=== PATIENT | female | born 1970 | race Caucasian/White ===

== ENCOUNTER 2019-06-10 21:18 | Emergency (ER) | payer MEDICAID ==
--- NOTE | 2019-06-10 22:40 | ED Physician Chart ---
ED Chief Complaint/HPI - Patient Information Date Seen:: 06/10/19 Time Seen:: 22:00 Chief Complaint:: left eye redness and itching History of Present Illness:: Patient woke this morning with redness and itching of left eye with eyelid stuck together. Now the right eye is starting to itch. No recent upper respiratory tract infection or cough. Allergies:: Allergies Allergy/AdvReac Type Severity Reaction Status Date / Time No Known Allergies Allergy Verified 06/10/19 21:48 Vitals:: Vital Signs - 8 hr 06/10/19 21:25 Temp 98.2 F HR 94 RR 18 BP 148/77 O2 Sat % 99 Historian:: Patient Review:: Nurse's Note Reviewed ED Review of Systems - Review of Systems General/Constitutional: No fever, No chills Skin: No skin lesions Head: No headache Eyes: Other (see history and physical) ENT: No earache Neck: No neck pain Cardio Vascular: No chest pain Pulmonary: No SOB GI: No nausea, No vomiting, No diarrhea G/U: No dysuria Musculoskeletal: No bone or joint pain Endocrine: No polyuria Psychiatric: No prior psych history, No depression, No anxiety Hematopoietic: No bruising Allergic/Immuno: No urticaria Neurological: No syncope ED Past Medical History - Past Medical History Past Medical History: No significant medical hx Family History: None Social History: Smoker, No Alcohol, Other Employment:: smokes 1/2 pack cigarets per day ED Physical Exam - Physical Examination General/Constitutional: Awake, Well-developed, well-nourished, Alert, No distress, GCS 15, Non-toxic appearing, Ambulatory Head: Atraumatic Eyes: PERRL, EOMI Other Eyes comments:: Left eye: Eyes lids 1 of 4 swollen; 2 out of 4 conjunctival redness; right eye plus or minus minimal conjunctival redness Skin: Nl inspection, No rash, No skin lesions, No ecchymosis, Well hydrated, No lymphadenopathy ENMT: External ears, nose nl, Nasal exam nl, Lips, teeth, gums nl Neck: Nontender, Full ROM w/o pain, No JVD, No nuchal rigidity, No bruit, No mass, No stridor Respiratory: Nl effort/Exclusion, Clear to Auscultation, No Wheeze/Rhonchi/Rales Cardio Vascular: RRR, No murmur, gallop, rubs, NL S1 S2 GI: No tenderness/rebounding/guarding, No organomegaly, No hernia, Normal BS's, Nondistended, No mass/bruits, No McBurney tenderness : No CVA tenderness Extremities: No tenderness or effusion, Full ROM, normal strength in all extremities, No edema, Normal digits & nails Neuro/Psych: Alert/oriented, DTR's symmetric, Normal sensory exam, Normal motor strength, Judgement/insight normal, Mood normal, Normal gait, No focal deficits Misc: Normal back, No paraspinal tenderness ED Septic Shock - . Is Septic Shock (SBP<90, OR Lactate>4 mmol\L) present?: No - <6hrs of presentation: Vital Signs: Vital Signs - 8 hr 06/10/19 21:25 Temp 98.2 F HR 94 RR 18 BP 148/77 O2 Sat % 99 ED Reassessment (Disposition) - Reassessment Reassessment Condition:: Unchanged - Diagnosis Diagnosis:: Conjunctivitis - Aftercare/Follow up Instructions Medication Prescribed:: Sulamyd 10% ophthalmic to apply 2 drops both eyes every 2 hours while awake - Patient Disposition Discharge/Transfer:: Home Condition at Disposition:: Stable, Improved
== END 2019-06-10 22:29 | disposition short-term general hospital (02) ==
LOC: ER 21:18
DX: H10.9 Unspecified conjunctivitis (principal); F17.210 Nicotine dependence, cigarettes, uncomplicated
CPT/HCPCS: Z7502